=== PATIENT | male | born 1970 | race Caucasian/White ===

== ENCOUNTER 2016-12-15 09:48 | Inpatient (IN) | payer OTHER ==
[2016-12-15 10:31] VITALS: BMI 20.5
--- NOTE | 2016-12-15 11:04 | HP ---
COWS - Scale Resting Pulse: 0= PA 80 or Below Sweatin= Chills/Flushing Restless Observation: 3= Extraneous Movement Pupil Size: 2= Moderately Dilated Bone or Joint Aches: 4=Acute Joint/Muscle Pain Runny Nose/ Eye Tearin= Nasal Congestion GI Upset > 30mins: 1= Stomach Cramp Tremor Observation: 2= Slight Tremor Visible Yawning Observation: 2= >3x During Session Anxiety or Irritability: 1=Feels Anxious/Irritable Goose Flesh Skin: 0=Smooth Skin COWS Score: 17 CIWA Score - CIWA Score Nausea/Vomitin-No Nausea/No Vomiting Muscle Tremors: 4-Moderate,w/Arms Extend Anxiety: 4-Mod. Anxious/Guarded Agitation: 4-Moderately Restless Paroxysmal Sweats: 1-Minimal Palms Moist Orientation: 0-Oriented Tacttile Disturbances: 3-Moderate Itch/Numb/Burn Auditory Disturbances: 0-None Visual Disturbances: 0-None Headache: 0-None Present CIWA-Ar Total Score: 16 Admission ROS S - HPI Chief Complaint: DETOX TX FOR HEROIN AND ALCOHOL DEPENDENCE Allergies/Adverse Reactions: Allergies Allergy/AdvReac Type Severity Reaction Status Date / Time No Known Allergies Allergy Verified 12/15/16 10:32 History of Present Illness: 46 Y/O H/M WITH A HX OF HEROIN AND ALCOHOL DEPENDENCE SEEKING DETOX TX. Exam Limitations: No Limitations - Ebola screening Have you traveled outside of the country in the last 21 days: No Have you had contact with anyone from an Ebola affected area: No Have you been sick,other than usual withdrawal symptoms: No Do you have a fever: No - Review of Systems Constitutional: Chills, Loss of Appetite, Night Sweats, Changes in sleep (USES AMBIEN) EENT: reports: Blurred Vision (USES GLASSES), Tearing, Nose Congestion Respiratory: reports: No Symptoms reported Cardiac: reports: Lightheadedness GI: reports: Constipated, Abdominal cramping : reports: No Symptoms Reported Musculoskeletal: reports: Back Pain, Joint Pain, Muscle Pain, Neck Pain ( HERNIATED DISC) Integumentary: reports: No Symptoms Reported Neuro: reports: Headache, Seizure (X1 IN 2016), Unsteady Gait, Dizziness Endocrine: reports: No Symptoms Reported Hematology: reports: No Symptoms Reported Psychiatric: reports: Orientated x3, Anxious, Depressed (HX DEPRESSION) Other Systems: Reviewed and Negative Patient History - Patient Medical History Hx Anemia: No Hx Asthma: No Hx Chronic Obstructive Pulmonary Disease (COPD): No Hx Cancer: No Hx Cardiac Disorders: No Hx Congestive Heart Failure: No Hx Hypertension: No Hx Hypercholesterolemia: No Hx Pacemaker: No HX Cerebrovascular Accident: No Hx Seizures: Yes (WITHDRAWAL SEIZURE 1 YR AGO,) Hx Dementia: No Hx Diabetes: No Hx Gastrointestinal Disorders: No Hx Liver Disease: No Hx Genitourinary Disorders: No Hx Sexually Transmitted Disorders: No Hx Renal Disease (ESRD): No Hx Thyroid Disease: No Hx Human Immunodeficiency Virus (HIV): No ([id number]) Hx Hepatitis C: No Hx Depression: Yes (NO CURRENT MEDS) Hx Suicide Attempt: No (DENIES) Hx Bipolar Disorder: Yes (NO CURRENT MEDS) Hx Schizophrenia: No Other Medical History: INSOMNIA--TAKES AMBIEN - Patient Surgical History Past Surgical History: Yes Hx Neurologic Surgery: No Hx Cataract Extraction: No Hx Cardiac Surgery: No Hx Lung Surgery: No Hx Breast Surgery: No Hx Breast Biopsy: No Hx Abdominal Surgery: No Hx Appendectomy: No Hx Cholecystectomy: No Hx Genitourinary Surgery: No Hx Section: No Hx Orthopedic Surgery: Yes (Fracture left arm IN 2006) Anesthesia Reaction: No - PPD History Previous Implant?: Yes Documented Results: Positive w/proof Implanted On Prior [facility] Admission?: No Results: CXR- NEG PPD to be Administered?: No - Reproductive History Patient is a Female of Child Bearing Age (11 -55 yrs old): No (MALE) - Smoking Cessation Smoking history: Current every day smoker Have you smoked in the past 12 months: Yes Aproximately how many cigarettes per day: 20 Cigars Per Day: 0 Hx Chewing Tobacco Use: No Initiated information on smoking cessation: Yes 'Breaking Loose' booklet given: 12/15/16 - Substance & Tx. History Hx Alcohol Use: Yes (BEER) Hx Substance Use: Yes (HEROIN) Substance Use Type: Alcohol, Heroin Hx Substance Use Treatment: Yes ([facility]) - Substances Abused Heroin Route: Inhalation Frequency: Daily Amount used: 4 BAGS Age of first use: 44 Date of Last Use: 12/14/16 Alcohol Route: Oral Frequency: Daily Amount used: 7-8 CANS OF BEER Age of first use: 15 Date of Last Use: 12/14/16 Family Disease History - Family Disease History Family Disease History: Other: Grandparent (alcohol), Father (ETOH DEPENDENT), Mother (PSYCH. PROBLEMS) Admission Physical Exam [facility] - Vital Signs Vital Signs: Vital Signs - 24 hr 12/15/16 10:29 Temperature 98.3 F Pulse Rate 73 Respiratory 18 Rate Blood Pressure 120/72 - Physical General Appearance: Yes: Moderate Distress, Irritable, Anxious HEENTM: Yes: EOMI, Normocephalic, MARLYN, Pharynx Normal Respiratory: Yes: Chest Non-Tender, Lungs Clear, Normal Breath Sounds, No Respiratory Distress Breast: Yes: Breast Exam Deferred Cardiology: Yes: Regular Rhythm, Regular Rate, S1, S2 Abdominal: Yes: Normal Bowel Sounds, Non Tender, Flat, Soft Genitourinary: Yes: Other Musculoskeletal: Yes: full range of Motion, Gait Steady Extremities: Yes: Normal Range of Motion, Non-Tender Neurological: Yes: guard lieutenant II-XII NML intact, Fully Oriented, Alert, Motor Strength 5/5 Integumentary: Yes: Dry, Warm Lymphatic: Yes: Within Normal Limits - Diagnostic (1) Cervical disc disease Current Visit: Yes Status: Chronic (2) Methadone maintenance therapy patient Current Visit: No Status: Inactive Comment: PT STATES HE WALKED AWAY FROM [facility] 5 WEEKS AGO AT [facility]. (3) Weight loss Current Visit: Yes Status: Chronic (4) Alcohol dependence with uncomplicated withdrawal Current Visit: Yes Status: Acute (5) Anxiety and depression Current Visit: Yes Status: Chronic (6) Cocaine dependence Current Visit: No Status: Inactive Qualifiers: Substance use status: uncomplicated Qualified Code(s): F14.20 - Cocaine dependence, uncomplicated (7) Nicotine dependence Current Visit: Yes Status: Chronic Qualifiers: Nicotine product type: cigarettes Substance use status: uncomplicated Qualified Code(s): F17.210 - Nicotine dependence, cigarettes, uncomplicated (8) Opioid dependence with withdrawal Current Visit: Yes Status: Acute (9) Withdrawal seizures Current Visit: Yes Status: Suspected Qualifiers: Complication of substance-induced condition: uncomplicated Qualified Code(s): F19.230 - Other psychoactive substance dependence with withdrawal, uncomplicated Cleared for Admission [facility] - Detox or Rehab [facility] Level of Care: Medically Managed Detox Regimen/Protocol: Methadone/Librium S Breath Alcohol Content Breath Alcohol Content: 0 Urine Drug Screen - Results Drug Screen Negative: No Urine Drug Screen Results: OPI-Opiates
[2016-12-15] MEDS ORDERED: MENTHOL/PHENOL 1 EACH UD MM PRN (11:14)
[2016-12-15] MEDS ORDERED: diphenhydrAMINE HCL 50 MG CAPSULE PO PRN (11:14)
[2016-12-15] MEDS ORDERED: MAGNESIUM CITRATE 300 ML BOTTLE PO PRN (11:14)
[2016-12-15] MEDS ORDERED: LOPERAMIDE HCL 2 MG CAPSULE PO PRN (11:14)
[2016-12-15] MEDS ORDERED: ACETAMINOPHEN 325 MG TABLET (FP) PO PRN (11:14)
[2016-12-15] MEDS ORDERED: chlordiazePOXIDE HCL 25 MG CAPSULE PO PRN (11:14)
[2016-12-15] MEDS ORDERED: MAG HYDROX/AL HYDROX/SIMETH 30 ML UNIT-DOSE CUP PO PRN (11:14)
[2016-12-15] MEDS ORDERED: guaiFENesin/D-METHORPHAN HB 10 ML UNIT-DOSE CUPS PO PRN (11:14)
[2016-12-15] MEDS ORDERED: P-EPHED 60MG/TRIPROLIDI 2.5MG TABLET PO PRN (11:14)
[2016-12-15] MEDS ORDERED: MAGNESIUM HYDROX 2400MG/30ML ORAL SUSPENSION 30 ML CUP PO PRN (11:14)
[2016-12-15] MEDS ORDERED: IBUPROFEN 400 MG TABLET (FP) PO PRN (11:14)
[2016-12-15] MEDS ORDERED: NICOTINE POLACRILEX 4 MG GUM BUC PRN (11:18)
[2016-12-15] MEDS ORDERED: METHADONE HCL 10 MG TABLET (FOR DETOX USE ONLY) PO ONE ×2 (13:05→23:00)
[2016-12-15] MEDS: NICOTINE 21 MG/24 HOURS TOPICAL PATCH TD SCH (13:46)
[2016-12-15 15:28] LABS: HIV 1 & 2 AB NEGATIVE; HIV 1 AGp24 NEGATIVE
--- NOTE | 2016-12-15 15:38 | EKG ---
Test Reason : Blood Pressure : / mmHG Vent. Rate : 065 BPM Atrial Rate : 065 BPM P-R Int : 148 ms QRS Dur : 084 ms QT Int : 390 ms P-R-T Axes : 026 033 045 degrees QTc Int : 405 ms NORMAL SINUS RHYTHM NORMAL ECG NO PREVIOUS ECGS AVAILABLE Confirmed by BREN GARCIA MD ([id number]) on 12/15/2016 3:38:25 PM Referred By: Confirmed By:BREN GARCIA MD
[2016-12-15] MEDS: chlordiazePOXIDE HCL 25 MG CAPSULE PO SCH ×2 (17:21→22:32)
[2016-12-15 20:19] LABS: URINE APPEARANCE CLEAR; URINE BILIRUBIN NEGATIVE (NEGATIVE); URINE BLOOD NEGATIVE (NEGATIVE); URINE COLOR YELLOW; URINE GLUCOSE (UA) NEGATIVE (NEGATIVE); URINE KETONE NEGATIVE (NEGATIVE); URINE LEUK ESTERASE NEGATIVE (NEGATIVE); URINE NITRITE NEGATIVE (NEGATIVE); URINE PROTEIN NEGATIVE (NEGATIVE); URINE UROBILINOGEN NEGATIVE E.U./dl (0.2-1.0)
[2016-12-15] MEDS: THIAMINE HCL 100 MG TABLET (FP) PO SCH (22:31)
[2016-12-16] MEDS: chlordiazePOXIDE HCL 25 MG CAPSULE PO SCH ×4 (05:55→22:13)
--- NOTE | 2016-12-16 09:34 | PN ---
S CIWA - CIWA Score Nausea/Vomitin Muscle Tremors: 4-Moderate,w/Arms Extend Anxiety: 4-Mod. Anxious/Guarded Agitation: 4-Moderately Restless Paroxysmal Sweats: 3 Orientation: 0-Oriented Tacttile Disturbances: 1-Very Mild Itch/Numbness Auditory Disturbances: 0-None Visual Disturbances: 0-None Headache: 0-None Present CIWA-Ar Total Score: 19 BHS COWS - Scale Resting Pulse: 1= MS 81-100 Sweatin= Chills/Flushing Restless Observation: 1= Difficult to Sit Still Pupil Size: 1= Pupils >than Normal Bone or Joint Aches: 1= Mild Discomfort Runny Nose/ Eye Tearin= Nasal Congestion GI Upset > 30mins: 2= Nausea/Diarrhea Tremor Observation of Outstretched Hands: 2= Slight Tremor Visible Yawning Observation: 1= 1-2x During Session Anxiety or Irritability: 2=Irritable/Anxious Goose Flesh Skin: 3=Piloerection COWS Score: 16 S Progress Note (SOAP) Subjective: nausea, sweats, anxiety, tremor, interrupted sleep, Objective: 12/16/16 09:33 Vital Signs - 24 hr 12/15/16 12/15/16 12/15/16 10:29 14:25 17:47 Temperature 98.3 F 98.7 F 97.5 F L Pulse Rate 73 71 63 Respiratory 18 18 16 Rate Blood Pressure 120/72 116/65 97/57 12/15/16 12/16/16 12/16/16 22:18 00:28 03:30 Temperature 96.6 F L Pulse Rate 73 Respiratory 18 18 18 Rate Blood Pressure 101/69 12/16/16 12/16/16 06:34 09:26 Temperature 96.8 F L 96.3 F L Pulse Rate 60 89 Respiratory 16 20 Rate Blood Pressure 108/73 107/70 Laboratory Tests 12/15/16 12/15/16 12:10 14:00 Urine Color Yellow Urine Appearance Clear Urine pH 7.0 D Ur Specific [place] 1.021 Urine Protein Negative Urine Glucose (UA) Negative Urine Ketones Negative Urine Blood Negative Urine Nitrite Negative Urine Bilirubin Negative Urine Urobilinogen Negative Ur Leukocyte Esterase Negative HIV 1&2 Antibody Screen Negative HIV P24 Antigen Negative labs still pending Assessment: 12/16/16 09:33 withdrawal sx Plan: cont detox
[2016-12-16] MEDS ORDERED: METHADONE HCL 10 MG TABLET (FOR DETOX USE ONLY) PO SCH (10:00)
[2016-12-16] MEDS: PRENATAL VITAMINS W/ FOLIC ACID TABLET (FP) PO SCH (10:06)
[2016-12-16] MEDS: NICOTINE 21 MG/24 HOURS TOPICAL PATCH TD SCH (10:07)
[2016-12-16 10:48] LABS: MCH 34.5 pg (25.7-33.7); MEAN CELL VOLUME 101.3 fl (80-96); MEAN PLT VOLUME 7.9 fl (7.5-11.1); PLATELET COUNT 273 K/MM3 (134-434); WHITE BLOOD COUNT 5.4 K/mm3 (4.0-10.0)
[2016-12-16 11:24] LABS: ALBUMIN 4.4 g/dl (3.4-5.0); ALK PHOS 56 U/L (45-117); ANION GAP 9 (8-16); BILIRUBIN,TOTAL 1.6 mg/dL (0.2-1.0); CALCIUM 9.2 mg/dL (8.5-10.1); CO2 28 mmol/L (21-32); CREATININE 0.8 mg/dL (0.7-1.3); GLUCOSE,RANDOM 70 mg/dL (74-106); SGOT/AST 25 U/L (15-37); SGPT/ALT 25 U/L (12-78); TOT PROT 7.4 g/dl (6.4-8.2)
--- NOTE | 2016-12-16 11:55 | CONSULT ---
[facility] Psychiatric Consult - Data Date of interview: 12/16/16 Admission source: [facility] Identifying data: Readmission to [facility] for this 45 y/o [place]born male seeking detox treatment on for alcohol,cocaine and heroin dependence.Patient is single,a father of two,homeless,unemployed and supported on Public Assistance. Substance Abuse History: - Smoking Cessation. Smoking history: Current every day smoker. Have you smoked in the past 12 months: Yes. Aproximately how many cigarettes per day: 20. Cigars Per Day: 0. Hx Chewing Tobacco Use: No. Initiated information on smoking cessation: Yes. 'Breaking Loose' booklet given : 12/15/16. - Substance & Tx. History. Hx Alcohol Use: Yes (BEER). Hx Substance Use: Yes (HEROIN). Substance Use Type: Alcohol, Heroin. Hx Substance Use Treatment: Yes ([facility]). - Substances Abused. Heroin. Route: Inhalation. Frequency: Daily. Amount used: 4 BAGS. Age of first use: 44. Date of Last Use: 12/14/16. Alcohol. Route: Oral. Frequency: Daily. Amount used: 7-8 CANS OF BEER. Age of first use: 15. Date of Last Use: . Confirmed by patient. Medical History: Significant for a history of herniated disc (neck) and fracture of left arm (2006). Psychiatric History: Poor historian.Noted history of admission to [facility] (2014) for depression.Mr Manzanares reports that he was diagnosed with Bipolar Disorder and treated with Zoloft and Gabapentin.He is currently followed by " a new " psychiatrist at the [facility] in the [place].Patient states that his medications consist of lexapro and zolpidem.He has also indicated poor adherence to OPD care (no show for three months and non- compliance with medications for four months).No reported history of suicide attempts. Physical/Sexual Abuse/Trauma History: Patient denies. Mental Status Exam - Mental Status Exam Alert and Oriented to: Time, Place, Person Cognitive Function: Good Patient Appearance: Well Groomed Mood: Hopeful, Euthymic Affect: Appropriate, Normal Range Patient Behavior: Appropriate, Cooperative Speech Pattern: Clear, Appropriate Voice Loudness: Normal Thought Process: Goal Oriented Thought Disorder: Not Present Hallucinations: Denies Suicidal Ideation: Denies Homicidal Ideation: Denies Insight/Judgement: Poor Sleep: Poorly, Difficulty falling asleep Appetite: Good Muscle strength/Tone: Normal Gait/Station: Normal Psychiatric Findings - Problem List ([place] 1, 2,3) (1) Alcohol dependence with uncomplicated withdrawal Current Visit: Yes Status: Acute (2) Nicotine dependence Current Visit: Yes Status: Acute Qualifiers: Nicotine product type: cigarettes Substance use status: uncomplicated Qualified Code(s): F17.210 - Nicotine dependence, cigarettes, uncomplicated (3) Opioid dependence with withdrawal Current Visit: Yes Status: Acute (4) Drug-induced mood disorder Current Visit: Yes Status: Acute (5) Bipolar II disorder Current Visit: No Status: Chronic Comment: By history. (6) Cervical disc disease Current Visit: Yes Status: Chronic (7) Positive PPD, treated Current Visit: No Status: Acute (8) Insomnia Current Visit: Yes Status: Acute - Initial Treatment Plan Initial Treatment Plan: Psychoeducation.Detoxification.Lexapro 10 mg po daily + Zolpidem 5 mg po prn.Side effects/benefits discussed with patient.He is in agreement with this careplan.Observation.
[2016-12-16] MEDS ORDERED: INFLUENZA VACCINE 45 MCG/0.5 ML (MDV 16-17) IM ONE (12:00)
[2016-12-16] MEDS: CYCLOBENZAPRINE HCL 10 MG TABLET (FP) PO SCH ×2 (15:22→22:14)
[2016-12-16] MEDS ORDERED: ZOLPIDEM TARTRATE 5 MG TABLET PO PRN (22:00)
[2016-12-16] MEDS: THIAMINE HCL 100 MG TABLET (FP) PO SCH (22:13)
[2016-12-17] MEDS: chlordiazePOXIDE HCL 25 MG CAPSULE PO SCH ×2 (05:48→10:36)
[2016-12-17] MEDS: CYCLOBENZAPRINE HCL 10 MG TABLET (FP) PO SCH (05:48)
[2016-12-17 09:57] VITALS: BP 113/70; PULSE 75; TEMP 95.9
[2016-12-17] MEDS ORDERED: METHADONE HCL 5 MG TABLET (FOR DETOX USE ONLY) PO SCH (10:00)
[2016-12-17] MEDS ORDERED: ESCITALOPRAM OXALATE 10 MG TABLET (FP) PO SCH (10:00)
[2016-12-17] MEDS: NICOTINE 21 MG/24 HOURS TOPICAL PATCH TD SCH (10:25)
[2016-12-17] MEDS: PRENATAL VITAMINS W/ FOLIC ACID TABLET (FP) PO SCH (10:25)
--- NOTE | 2016-12-17 10:44 | PN ---
[facility] Progress Note Note: Vital Signs - 24 hr 12/16/16 12/16/16 12/17/16 17:22 22:37 00:33 Temperature 97.9 F 95.2 F L Pulse Rate 77 80 Respiratory 18 18 18 Rate Blood Pressure 97/53 114/75 12/17/16 12/17/16 12/17/16 03:44 06:31 09:55 Temperature 95.8 F L 95.9 F L Pulse Rate 82 75 Respiratory 18 16 18 Rate Blood Pressure 103/69 113/70 Laboratory Tests 12/15/16 12/15/16 12/16/16 12:10 14:00 06:00 WBC 5.4 RBC 4.34 Hgb 15.0 Hct 44.0 MCV 101.3 H MCHC 34.0 RDW 13.0 Plt Count 273 D MPV 7.9 Sodium Potassium Chloride Carbon Dioxide Anion Gap BUN Creatinine Creat Clearance w eGFR Random Glucose Calcium Total Bilirubin AST ALT Alkaline Phosphatase Total Protein Albumin Urine Color Yellow Urine Appearance Clear Urine pH 7.0 D Ur Specific [place] 1.021 Urine Protein Negative Urine Glucose (UA) Negative Urine Ketones Negative Urine Blood Negative Urine Nitrite Negative Urine Bilirubin Negative Urine Urobilinogen Negative Ur Leukocyte Esterase Negative RPR Titer HIV 1&2 Antibody Screen Negative HIV P24 Antigen Negative 12/16/16 12/16/16 06:00 06:00 WBC RBC Hgb Hct MCV MCHC RDW Plt Count MPV Sodium 137 Potassium 4.8 D Chloride 100 Carbon Dioxide 28 Anion Gap 9 BUN 12 Creatinine 0.8 Creat Clearance w eGFR > 60 Random Glucose 70 L D Calcium 9.2 Total Bilirubin 1.6 H AST 25 D ALT 25 D Alkaline Phosphatase 56 D Total Protein 7.4 D Albumin 4.4 Urine Color Urine Appearance Urine pH Ur Specific [place] Urine Protein Urine Glucose (UA) Urine Ketones Urine Blood Urine Nitrite Urine Bilirubin Urine Urobilinogen Ur Leukocyte Esterase RPR Titer Nonreactive HIV 1&2 Antibody Screen HIV P24 Antigen macrocytosis, Paient refusing to complete detox as ordered, has h/o seizure disorder from oversue of tramadol on Keppra, refusing accelarated detox scheule. will sign out AMA.
--- NOTE | 2016-12-17 10:48 | DS ---
[facility] Detox Discharge Summary Admission Date: 12/15/16 Discharge Date: 12/17/16 - History Present History: Alcohol Dependence, Opioid Dependence Pertinent Past History: anxiety, derpression, insomnia, nicotine dependence with withdrawal syndrome , recent wt loss and anorexia from substance use - Physical Exam Results Vital Signs: Vital Signs Temperature 95.9 F L 12/17/16 09:55 Pulse Rate 75 12/17/16 09:55 Respiratory Rate 18 12/17/16 09:55 Blood Pressure 113/70 12/17/16 09:55 O2 Sat by Pulse Oximetry (%) Pertinent Admission Physical Exam Findings: withdrawal sx - Treatment Hospital Course: Detox Protocol Followed - Medication Discharge Medications: Ambulatory Orders Zolpidem Tartrate [Ambien] 10 mg PO HS 12/15/16 Escitalopram Oxalate [Lexapro -] 10 mg PO DAILY #30 tablet 12/16/16 - Diagnosis (1) Alcohol dependence with uncomplicated withdrawal Current Visit: Yes Status: Chronic (2) Drug-induced mood disorder Current Visit: Yes Status: Acute (3) Insomnia Current Visit: Yes Status: Chronic Qualifiers: Insomnia type: drug-induced Qualified Code(s): F19.982 - Other psychoactive substance use, unspecified with psychoactive substance-induced sleep disorder (4) Nicotine dependence Current Visit: Yes Status: Chronic Qualifiers: Nicotine product type: cigarettes Substance use status: in withdrawal Qualified Code(s): F17.213 - Nicotine dependence, cigarettes, with withdrawal (5) Opioid dependence with withdrawal Current Visit: Yes Status: Chronic (6) Cervical disc disease Current Visit: Yes Status: Chronic (7) Weight loss Current Visit: Yes Status: Chronic (8) Withdrawal seizures Current Visit: Yes Status: Suspected Qualifiers: Complication of substance-induced condition: uncomplicated Qualified Code(s): F19.230 - Other psychoactive substance dependence with withdrawal, uncomplicated (9) Positive PPD, treated Current Visit: No Status: Acute (10) Bipolar II disorder Current Visit: No Status: Chronic (11) Schizophrenia Current Visit: No Status: Chronic (12) Anorexia Current Visit: Yes Status: Acute - AMA Did Patient Leave Against Medical Advice: Yes
[2016-12-17] MEDS ORDERED: chlordiazePOXIDE 5 MG CAPSULE PO SCH (17:00)
[2016-12-18] MEDS ORDERED: chlordiazePOXIDE HCL 10 MG CAPSULE PO SCH (17:00)
[2016-12-19] MEDS ORDERED: METHADONE HCL 10 MG TABLET (FOR DETOX USE ONLY) PO SCH (10:00)
[2016-12-20] MEDS ORDERED: METHADONE HCL 5 MG TABLET (FOR DETOX USE ONLY) PO SCH (06:00)
== END 2016-12-17 10:45 | disposition left against medical advice (07) | DRG 770 ==
LOC: YASAS 09:48 → Y3N 12:59
PROVIDERS: ADMIT Internal Medicine; ATTEND Internal Medicine
PROC: HZ2ZZZZ Detoxification Services for Substance Abuse Treatment (ICD-10-PCS; principal; 2016-12-15)
DX: F11.23 Opioid dependence with withdrawal (principal); F10.230 Alcohol dependence with withdrawal, uncomplicated; F17.210 Nicotine dependence, cigarettes, uncomplicated; F19.24 Other psychoactive substance dependence with psychoactive substance-induced mood disorder; F19.282 Other psychoactive substance dependence with psychoactive substance-induced sleep disorder; F19.230 Other psychoactive substance dependence with withdrawal, uncomplicated; F31.81 Bipolar II disorder; F20.9 Schizophrenia, unspecified; R63.0 Anorexia; Z68.20 Body mass index [BMI] 20.0-20.9, adult; M50.20 Other cervical disc displacement, unspecified cervical region; R76.11 Nonspecific reaction to tuberculin skin test without active tuberculosis; D75.89 Other specified diseases of blood and blood-forming organs; G47.00 Insomnia, unspecified; Z86.69 Personal history of other diseases of the nervous system and sense organs
CPT/HCPCS: 36415; 80053; 81003; 85027; 86593; 87389; 93005; 93010